=== PATIENT | female | born 1995 | race Two or more races ===

== ENCOUNTER 2018-03-11 21:40 | Emergency (ER) | payer OTHER ==
[~2018-03-11] VITALS: Ht 165.1 cm; Wt 59.0 kg
[2018-03-11 21:48] VITALS: BP 122/78
[2018-03-11] MEDS ORDERED: NAPR-514 PO (22:37)
--- NOTE | 2018-03-11 22:37 | PHYS DOC ---
Past Medical History Past Medical History: No Pertinent History Past Surgical History: Appendectomy Alcohol Use: None Drug Use: None Adult General Chief Complaint Chief Complaint: FOOT INJURY PAIN HPI HPI Patient is a 22 year old female who presents to the emergency department with complaints of right lateral foot pain after falling down 3 steps of a ladder. Patient denies any numbness, tingling, or weakness of the extremity. Patient states that her pain increases with movement or when pressure is applied. Review of Systems Review of Systems Constitutional: Denies fever or chills [] Musculoskeletal: Reports R foot pain and swelling Integument: Denies rash or skin lesions [] Neurologic: Denies headache, focal weakness or sensory changes [] All other systems were reviewed and found to be within normal limits, except as documented in this note. Current Medications Current Medications Current Medications Medications (Trade) Dose Ordered Sig/Parish Start Time Stop Time Status Last Admin Dose Admin Acetaminophen/ Hydrocodone Bitart (Lortab 5/325) 1 tab 1X ONCE 03/11/18 23:00 03/11/18 23:01 DC 03/11/18 22:48 1 TAB Allergies Allergies Allergies Coded Allergies Type Severity Reaction Last Updated Verified No Known Drug Allergies 03/11/18 No Physical Exam Physical Exam Constitutional: Well developed, well nourished, no acute distress, non-toxic appearance. [] HENT: Normocephalic, atraumatic, bilateral external ears normal, nose normal. [ ] Eyes: PERRLA, conjunctiva normal, no discharge. [] Skin: Warm, dry, no erythema, no rash. [] Extremities: No cyanosis, no clubbing; lateral R slide forming machine tender to palpation with 1 + edema, No decreased ROM of R toes or ankle Neurologic: Alert and oriented X 3, normal motor function, normal sensory function, no focal deficits noted. [] Psychologic: Affect normal, judgement normal, mood normal. [] Current Patient Data Vital Signs Vital Signs Date Time Temp Pulse Resp B/P (MAP) Pulse Ox O2 Delivery O2 Flow Rate FiO2 03/11/18 22:48 16 99 Room Air 03/11/18 21:48 98.5 104 122/78 (93) 98.5 EKG EKG [] Radiology/Procedures Radiology/Procedures xray of R foot is negative for acute fracture or dislocation, read by Dr. Cunha[] Course & Med Decision Making Course & Med Decision Making Pertinent Labs and Imaging studies reviewed. (See chart for details) Dx: R foot contusion; R foot pain An gunjan wrap and post op shoe were applied to the right foot by nurse. Recommend application of ice, elevation, and rest of affected extremity. Wear the gunjan wrap and post-op shoe that was placed until follow up appointment. Follow up with your primary care doctor in 2-3 days if symptoms persist. Return to the ER if your symptoms worsen. Patient verbalized an understanding of home care, medications, follow-up, and return to ED instructions and was in agreement with the plan of care. [] Dragon Disclaimer Dragon Disclaimer This electronic medical record was generated, in whole or in part, using a voice recognition dictation system. Departure Departure Impression: Primary Impression: Contusion of right foot, initial encounter Additional Impression: Foot pain, right Disposition: 01 HOME, SELF-CARE Condition: STABLE Referrals: NO PCP (PCP) Patient Instructions: Foot Contusion, [id number] Additional Instructions: Fill prescription(s) and use as directed. Recommend application of ice, elevation, and rest of affected extremity. Wear the gunjan wrap and post-op shoe that was placed until follow up appointment. Follow up with your primary care doctor in 2-3 days if symptoms persist. Return to the ER if your symptoms worsen. Scripts Naproxen (NAPROXEN) 500 Mg Tablet 500 MG PO BID for 10 Days, #20 TAB 0 Refills Prov: AUGUST GRAY APRN 03/11/18 Problem Qualifiers AUGUST GRAY APRN Mar 11, 2018 22:37
--- NOTE | 2018-03-11 22:41 | RAD ---
History: Fall 3 steps from ladder. Swallowing. Comparison: None. Findings: AP, lateral, and oblique views of the right foot. Metallic ring projects over portions of the 2nd proximal and middle phalanges. No acute fracture or dislocation is identified. No focal soft tissue swelling is seen. Impression: No acute osseous traumatic injury identified. Electronically signed by: Arnulfo Day MD (03/11/2018 10:37 PM) [facility]
[2018-03-11] MEDS ORDERED: HYDROcodone/APAP 5/325MG 1 TAB TABLET PO ONE (23:00)
== END 2018-03-11 22:53 | disposition home or self-care (01) ==
LOC: ER 21:40
DX: S90.31XA Contusion of right foot, initial encounter (principal); Z90.49 Acquired absence of other specified parts of digestive tract; W11.XXXA Fall on and from ladder, initial encounter; Y93.89 Activity, other specified; Y92.89 Other specified places as the place of occurrence of the external cause; Y99.8 Other external cause status
CPT/HCPCS: 73630; 99284

== ENCOUNTER 2018-10-22 22:16 | Emergency (ER) | payer OTHER, SELFPAY ==
[~2018-10-22] VITALS: Ht 162.6 cm; Wt 56.2 kg
[~2018-10-22 22:16] MED LIST: NAPR-514 PO
[2018-10-22 22:45] VITALS: BP 118/72
[2018-10-22] MEDS ORDERED: IBUP-1060 PO (23:40)
[2018-10-22] MEDS ORDERED: AMOX500C PO (23:40)
--- NOTE | 2018-10-22 23:41 | PHYS DOC ---
Past Medical History Past Medical History: No Pertinent History Past Surgical History: Appendectomy Alcohol Use: None Drug Use: None Adult General Chief Complaint Chief Complaint: TOOTH ACHE OR PAIN [facility] Patient is a 23 year old female presents to the ED complaining of dental pain 2 days ago. Complains of left lower molar dental pain. Describes her pain as sharp. Rates her pain as 6 out of 10. Patient has not taken any [id number] medications. States she has not contacted a dentist. Denies difficulty swallowing, tongue swelling, fever, nausea/vomiting, chest pain, cough or shortness of breath. Review of Systems Review of Systems Constitutional: Denies fever or chills [] Eyes: Denies change in visual acuity, redness, or eye pain [] HENT: Complains of dental pain. Denies nasal congestion or sore throat [] Respiratory: Denies cough or shortness of breath [] Cardiovascular: No additional information not addressed in HPI [] GI: Denies abdominal pain, nausea, vomiting, bloody stools or diarrhea [] : Denies dysuria or hematuria [] Musculoskeletal: Denies back pain or joint pain [] Integument: Denies rash or skin lesions [] Neurologic: Denies headache, focal weakness or sensory changes [] All other systems were reviewed and found to be within normal limits, except as documented in this note. Allergies Allergies Allergies Coded Allergies Type Severity Reaction Last Updated Verified No Known Drug Allergies 03/11/18 No Physical Exam Physical Exam Constitutional: Well developed, well nourished, no acute distress, non-toxic appearance. [] HENT: Normocephalic, atraumatic, bilateral external ears normal, oropharynx moist, no oral exudates, nose normal. Mild left lower molar dental caries. No abscess or fluctuance. [] Eyes: PERRLA, EOMI, conjunctiva normal, no discharge. [] Neck: Normal range of motion, no tenderness, supple, no stridor. [] Cardiovascular:Heart rate regular rhythm, no murmur [] Lungs & Thorax: Bilateral breath sounds clear to auscultation [] Skin: Warm, dry, no erythema, no rash. [] Neurologic: Alert and oriented X 3, normal motor function, normal sensory function, no focal deficits noted. [] Psychologic: Affect normal, judgement normal, mood normal. [] Current Patient Data Vital Signs Vital Signs Date Time Temp Pulse Resp B/P (MAP) Pulse Ox O2 Delivery O2 Flow Rate FiO2 10/22/18 22:45 98.3 87 16 118/72 (87) 99 Room Air 98.3 EKG EKG [] Radiology/Procedures Radiology/Procedures [] Course & Med Decision Making Course & Med Decision Making Pertinent Labs and Imaging studies reviewed. (See chart for details) []Dental caries on exam. Poor dentition throughout. No abscess or fluctuance. We'll treat with prophylactic antibiotics outpatient. Discussed symptomatic treatment and follow-up with dentist. Provided community resources. Discussed reasons to return to the ED. Patient understands and agrees with plan. Dragon Disclaimer Dragon Disclaimer This electronic medical record was generated, in whole or in part, using a voice recognition dictation system. Departure Departure Impression: Primary Impression: Dental caries Disposition: 01 HOME, SELF-CARE Condition: IMPROVED Referrals: NO PCP (PCP) Patient Instructions: Dental Caries Scripts Amoxicillin (AMOXICILLIN) 500 Mg Capsule 1 CAP PO TID for 7 Days, #21 CAP Prov: GEOVANNA GALAN 10/22/18 Ibuprofen (IBUPROFEN) 800 Mg Tablet 800 MG PO PRN Q6HRS PRN for INFLAMMATION, #10 TAB Prov: GEOVANNA GALAN 10/22/18 GEOVANNA GALAN October 22, 2018 23:40
== END 2018-10-23 00:10 | disposition home or self-care (01) ==
LOC: ER 22:16
DX: K02.9 Dental caries, unspecified (principal); Z90.89 Acquired absence of other organs
CPT/HCPCS: 99283

== ENCOUNTER 2019-01-17 01:30 | Emergency (ER) | payer SELFPAY ==
[~2019-01-17] VITALS: Ht 160 cm; Wt 56.2 kg
[~2019-01-17 01:30] MED LIST changes: +AMOX500C PO; +IBUP-1060 PO
--- NOTE | 2019-01-17 03:44 | PHYS DOC ---
Past Medical History Past Medical History: No Pertinent History Past Surgical History: Appendectomy Alcohol Use: None Drug Use: None Adult General Chief Complaint Chief Complaint: SORE THROAT HPI HPI Patient is a 23 year old with cc of sore throat, cough subj fever taking tylenol symptoms for three days. no other medical history. Allergies Allergies Allergies Coded Allergies Type Severity Reaction Last Updated Verified No Known Drug Allergies 03/11/18 No Physical Exam Physical Exam Constitutional: Well developed, well nourished, no acute distress, non-toxic appearance. [] HENT: Normocephalic, atraumatic, bilateral external ears normal, oropharynx moist, no oral exudates, nose normal. [] no palatal petechiae Eyes: PERRLA, EOMI, conjunctiva normal, no discharge. [] Neck: Normal range of motion, no tenderness, supple, no stridor. [] Cardiovascular:Heart rate regular rhythm, no murmur [] Lungs & Thorax: Bilateral breath sounds clear to auscultation [] Abdomen: Bowel sounds normal, soft, no tenderness, no masses, no pulsatile masses. [] Skin: Warm, dry, no erythema, no rash. [] Neurologic: Alert and oriented X 3, normal motor function, normal sensory function, no focal deficits noted. [] Psychologic: Affect normal, judgement normal, mood normal. [] Current Patient Data Vital Signs Vital Signs Date Time Temp Pulse Resp B/P (MAP) Pulse Ox O2 Delivery O2 Flow Rate FiO2 01/17/19 01:44 98.2 89 18 140/88 (105) 98 Room Air 98.2 EKG EKG [] Radiology/Procedures Radiology/Procedures [] Course & Med Decision Making Course & Med Decision Making Pertinent Labs and Imaging studies reviewed. (See chart for details) []rapid strep neg per nurses staff. conservative mgmt Dragon Disclaimer Dragon Disclaimer This electronic medical record was generated, in whole or in part, using a voice recognition dictation system. Departure Departure Impression: Primary Impression: Sore throat Disposition: HOME, SELF-CARE Condition: STABLE Patient Instructions: Sore Throat, [id number] GWEN WEEKS MD Jan 17, 2019 03:44
== END 2019-01-17 02:12 | disposition home or self-care (01) ==
LOC: ER 01:30
DX: J02.9 Acute pharyngitis, unspecified (principal); R50.9 Fever, unspecified; R05 Cough; Z90.89 Acquired absence of other organs
CPT/HCPCS: 87070; 87880; 99283

== ENCOUNTER 2019-05-30 17:34 | Emergency (ER) | payer OTHER ==
[~2019-05-30] VITALS: Ht 165.1 cm; Wt 53.1 kg
[2019-05-30 18:08] VITALS: BP 118/72
[2019-05-30] MEDS ORDERED: CEPH500T PO (18:18)
--- NOTE | 2019-05-30 18:18 | PHYS DOC ---
Past Medical History Past Medical History: No Pertinent History Past Surgical History: Appendectomy Alcohol Use: None Drug Use: None Adult General Chief Complaint Chief Complaint: ABSCESS HPI HPI Patient is a 23 year old female currently 2-1/2 months presenting with an abscess of the left breast for 2-1/2 days. Patient denies any drainage from the breast. Denies any fever. Review of Systems Review of Systems Constitutional: Denies fever or chills [] Eyes: Denies change in visual acuity, redness, or eye pain [] HENT: Denies nasal congestion or sore throat [] Respiratory: Denies cough or shortness of breath [] Cardiovascular: No additional information not addressed in HPI [] GI: Denies abdominal pain, nausea, vomiting, bloody stools or diarrhea [] : Denies dysuria or hematuria [] Musculoskeletal: Denies back pain or joint pain [] Integument: Reports abscess of the left breast Neurologic: Denies headache, focal weakness or sensory changes [] All other systems were reviewed and found to be within normal limits, except as documented in this note. Allergies Allergies Allergies Coded Allergies Type Severity Reaction Last Updated Verified No Known Drug Allergies 03/11/18 No Physical Exam Physical Exam Constitutional: Well developed, well nourished, no acute distress, non-toxic appearance. [] HENT: Normocephalic, atraumatic, bilateral external ears normal, oropharynx moist, no oral exudates, nose normal. [] Eyes: PERRLA, EOMI, conjunctiva normal, no discharge. [] Neck: Normal range of motion, no tenderness, supple, no stridor. [] Cardiovascular:Heart rate regular rhythm, no murmur [] Lungs & Thorax: Bilateral breath sounds clear to auscultation [] Abdomen: Bowel sounds normal, soft, no tenderness, no masses, no pulsatile masses. [] Skin: Left breast that around 1000 position with an indurated area approximately 1 x 1 cm consistent with an abscess. The area is warm tender to touch and firm, no nipple dimpling, no nipple drainage. Back: No tenderness, no CVA tenderness. [] Extremities: No tenderness, no cyanosis, no clubbing, ROM intact, no edema. [] Neurologic: Alert and oriented X 3, normal motor function, normal sensory function, no focal deficits noted. [] Psychologic: Affect normal, judgement normal, mood normal. [] EKG EKG [] Radiology/Procedures Radiology/Procedures [] Course & Med Decision Making Course & Med Decision Making Pertinent Labs and Imaging studies reviewed. (See chart for details) This is a 23-year-old female patient currently 2-1/2 months presenting to the ED today complaining of an abscess on the left breast for 2 days. Tetanus is up-to-date, discharged with cephalexin. Warm compresses recommended to the area. Follow-up with primary care doctor in 1-2 weeks. Dragon Disclaimer Dragon Disclaimer This electronic medical record was generated, in whole or in part, using a voice recognition dictation system. Departure Departure Impression: Primary Impression: Left breast abscess Additional Impression: Currently Disposition: 01 HOME, SELF-CARE Condition: STABLE Referrals: NO PCP (PCP) follow up with your OBGYN in 1-2 weeks. Patient Instructions: Abscess, [id number] Additional Instructions: You have an abscess on the left breast, please apply warm compresses to the area twice a day. Complete your prescribed antibiotics, follow-up with your [employer] [employer] in 1-2 weeks Scripts Cephalexin (CEPHALEXIN) 500 Mg Tablet 1 TAB PO TID, #30 TAB Prov: JOSE HUERTA APRN 05/30/19 Problem Qualifiers Additional Impression: Currently Weeks of gestation: 9 weeks Qualified Codes: Z3A.09 - 9 weeks gestation of JOSE HUERTA APRN May 30, 2019 18:18
== END 2019-05-30 18:38 | disposition home or self-care (01) ==
LOC: ER 17:34
DX: O91.111 Abscess of breast associated with pregnancy, first trimester (principal); Z3A.09 9 weeks gestation of pregnancy
CPT/HCPCS: 99283

== ENCOUNTER 2019-07-06 20:29 | Emergency (ER) | payer OTHER ==
[~2019-07-06] VITALS: Ht 162.6 cm; Wt 45.0 kg
[~2019-07-06 20:29] MED LIST changes: +CEPH500T PO
[2019-07-06 23:56] VITALS: BP 132/63
[2019-07-07] MEDS ORDERED: HYDR30CR74 TP (00:32)
--- NOTE | 2019-07-07 00:33 | PHYS DOC ---
Past Medical History Past Medical History: No Pertinent History Past Surgical History: Appendectomy Smoking Status: Never Smoker Alcohol Use: None Drug Use: None Adult General Chief Complaint Chief Complaint: ITCHING HPI HPI Patient is a 24 year old female who presents with works with [employer]. She states that she put on gloves 3 days ago at work that were rubber skin itching. She now has bilateral dorsal hand dermatitis type rash. She states is very itchy. Denies any pain. Review of Systems Review of Systems Integument: Bilateral dorsal hand rash or skin lesions [] All other systems were reviewed and found to be within normal limits, except as documented in this note. Allergies Allergies Allergies Coded Allergies Type Severity Reaction Last Updated Verified No Known Drug Allergies 03/11/18 No Physical Exam Physical Exam Constitutional: Well developed, well nourished, no acute distress, non-toxic appearance. [] HENT: Normocephalic, atraumatic, bilateral external ears normal, oropharynx moist, no oral exudates, nose normal. [] Eyes: PERRLA, EOMI, conjunctiva normal, no discharge. [] Neck: Normal range of motion, no tenderness, supple, no stridor. [] Cardiovascular:Heart rate regular rhythm, no murmur [] Lungs & Thorax: Bilateral breath sounds clear to auscultation [] Abdomen: Bowel sounds normal, soft, no tenderness, no masses, no pulsatile masses. [] Skin: Warm, dry, no erythema. Bilateral dorsal hand rash. [] Back: No tenderness, no CVA tenderness. [] Extremities: No tenderness, no cyanosis, no clubbing, ROM intact, no edema. [] Neurologic: Alert and oriented X 3, normal motor function, normal sensory function, no focal deficits noted. [] Psychologic: Affect normal, judgement normal, mood normal. [] EKG EKG [] Radiology/Procedures Radiology/Procedures [] Course & Med Decision Making Course & Med Decision Making Pertinent Labs and Imaging studies reviewed. (See chart for details) Alert and oriented. Speaks in full clear sentences. Patient has bilateral dorsal hand contact dermatitis rash. No drainage or sores. No blisters. No infection. Patient has full range of motion of her fingers and hands. No swelling. Denies numbness or tingling. Radial pulses are present bilaterally. [] Dragon Disclaimer Dragon Disclaimer This electronic medical record was generated, in whole or in part, using a voice recognition dictation system. Departure Departure Impression: Primary Impression: Contact dermatitis Disposition: HOME, SELF-CARE Condition: STABLE Referrals: NO PCP (PCP) Patient Instructions: Hand Dermatitis Additional Instructions: Use medication as prescribed. Benadryl is also safe to use in . Follow up with your OB doctor. Scripts Hydrocortisone (Hydrocortisone) 30 Gm Cream.appl 1 RANDY TP BID for 7 Days, #30 GM 0 Refills Prov: LAWSON OCONNELL APRN 07/07/19 Problem Qualifiers Primary Impression: Contact dermatitis Contact dermatitis type: unspecified Contact dermatitis trigger: other trigger Qualified Codes: L25.8 - Unspecified contact dermatitis due to other agents LAWSON OCONNELL APRN Jul 07, 2019 00:33
== END 2019-07-07 00:45 | disposition home or self-care (01) ==
LOC: ER 20:29
DX: L25.8 Unspecified contact dermatitis due to other agents (principal)
CPT/HCPCS: 99282